=== PATIENT | female | born 1970 | race Caucasian/White ===

== ENCOUNTER 2024-06-22 11:27 | Emergency (ER) | payer BC, SELFPAY ==
[2024-06-22] VITALS (23 sets, daily range): BP systolic 133–208; BP diastolic 75–99; PULSE 93–123; RESP 11–28; TEMP 36.5; O2SAT 94–100
--- NOTE | 2024-06-22 11:57 | ED.GENADUL_ITS ---
Discharge Plan Disposition Patient Disposition: Home Condition: Stable Discharge Details Clinical Impression: Acute alcoholic gastritis, Nausea & vomiting Primary Care Provider: Stephanie,Local ED Provider: Minerva Shukla Home Meds and New Rx's Prescriptions: New ondansetron 4 mg tablet,disintegrating 4 mg PO Q8H PRN (Reason: nausea and vomiting) 4 Days Qty: 10 0RF Rx Instructions: Take 1 tablet by mouth up to 3 times daily 20 minutes before eating or drinking anything for the next 4 days as needed for nausea vomiting Continued desvenlafaxine succinate [Pristiq] 50 mg tablet extended release 24 hr 50 mg PO DAILY topiramate [Qudexy XR] 200 mg capsule,sprinkle,ER 24hr 200 mg PO DAILY atorvastatin [Lipitor] 20 mg tablet 20 mg PO DAILY naltrexone 50 mg tablet 50 mg PO DAILY valacyclovir 1 gram tablet 2,000 mg PO Q12H PRN Patient Comments: as needed for cold sore Discharge Instructions Instructions: Alcohol use - when is drinking a problem?, Gastritis ED, Nausea and Vomiting, Adult ED Additional Instructions: Please take the nausea medication 20 to 30 minutes before eating or drinking anything. Please keep yourself hydrated today. [place] diet. Stay away from anything fried fatty spicy dairy or alcohol. Follow up with primary care provider in 3-5 days. Return to ED sooner if any worsening or concerns. Return to the ER if you have any continued vomiting, tremors, any visual disturbances or concerns. Referrals: [facility] [Outside] - 1 day (Call if desired) Primary Care Provider [Outside] - 3 days HPI General Mode of arrival: ambulatory . Date/Time Provider Initiated Documentation: 06/22/24 11:45 . Limitations to Documentation: no limitations . Information obtained by: patient, RN notes reviewed and old records reviewed . HPI Narrative: 53-year-old female presents to the ER with a chief complaint of nausea vomiting after drinking approximately half a bottle of gin last night. Patient reports that she does have a history of alcohol dependence and is currently undergoing treatment she does have a therapist and psychiatrist. She reports that she had a lapse last night. She states that she is unable to keep any water down and she feels thirsty. No noted tremors noted, she is slightly tachycardic upon ar rival and a rate of 123. Denies any abdominal pain or diarrhea. She does have a past medical history of high cholesterol, Related Data Home Medications ?Medication ?Instructions ?Recorded ?Confirmed atorvastatin 20 mg tablet (Lipitor) 20 mg PO DAILY 06/22/24 06/22/24 desvenlafaxine succinate 50 mg 50 mg PO DAILY 06/22/24 06/22/24 tablet,extended release 24 hr (Pristiq) naltrexone 50 mg tablet 50 mg PO DAILY 06/22/24 06/22/24 ondansetron 4 mg disintegrating 4 mg PO Q8H PRN nausea and 06/22/24 tablet vomiting 4 days #10 tabs topiramate 200 mg capsule 200 mg PO DAILY 06/22/24 06/22/24 sprinkle,extended release 24 hr (Qudexy XR) valacyclovir 1 gram tablet 2,000 mg PO Q12H PRN 06/22/24 06/22/24 Previous Rx's ?Medication ?Instructions ?Recorded ondansetron 4 mg disintegrating 4 mg PO Q8H PRN nausea and 06/22/24 tablet vomiting 4 days #10 tabs Allergies Allergy/AdvReac Type Severity Reaction Status Date / Time No Known Allergies Allergy Unverified 06/22/24 11:44 General Stated Complaint: Nausea/Vomit/Diar KENIA: 2 Review of Systems All systems reviewed & are unremarkable except as noted in HPI and below Gastrointestinal Gastrointestinal: Reports nausea and Reports vomiting Exam Narrative Exam Narrative: Constitutional: Alert and oriented x3. Appears stated age. Normal body habitus. Head: Normocephalic, no trauma. Eyes: Pupils PERRL, Red reflex noted, EOM's intact. Eyelids symmetrical without lesions, discharge, or swelling. ENT: Bilateral TM's WNL, External ear normal to inspection, no mastoid TTP, swelling, or erythema, Nasal turbinates WNL, no nasal discharge. Normal dentition, Posterior pharynx WNL, no exudate. Chest: RRR, Normal S1, S2, distal pulses intact. Resp: Lungs clear to auscultation bilaterally, no wheezes, rales, or rhonchi. Abdomen: Soft, non-distended, Normoactive bowel sounds all 4 quads. Musculoskeletal: Normal gait, Moves all 4 extremities without difficulty. Skin: No suspicious rashes or lesions. Capillary refill less than 2 sec. Neurologic: Cranial nerves II-XII intact. Alert and oriented x 3. Motor: No deficits noted. Sensory: Intact bilaterally all 4 extremities. Hematologic/Lymphatic: No ecchymosis, no lymphadenopathy. Course Vital Signs Vital signs: Vital Signs Temperature 36.5 C 06/22/24 11:38 Pulse 123 H 06/22/24 11:38 Respiratory Rate 18 06/22/24 11:38 Blood Pressure 133/75 06/22/24 11:38 Pulse Oximetry 100 06/22/24 11:38 Temperature 36.5 C 06/22/24 11:38 Pulse 123 H 06/22/24 11:38 Respiratory Rate 18 06/22/24 11:38 Respiratory Effort Normal 06/22/24 11:43 Blood Pressure 133/75 06/22/24 11:38 Pulse Oximetry 100 06/22/24 11:38 Pain Level 0 06/22/24 11:38 Medical Decision Making 53-year-old female presents to the ER with a chief complaint of nausea vomiting after drinking approximately half a bottle of gin last night. Patient reports that she does have a history of alcohol dependence and is currently undergoing treatment she does have a therapist and psychiatrist. She reports that she had a lapse last night. She states that she is unable to keep any water down and she feels thirsty. No noted tremors noted, she is slightly tachycardic upon arrival and a rate of 123. Denies any abdominal pain or diarrhea. She does have a past medical history of high cholesterol, Labs ordered including ethyl alcohol level, Zofran 4 mg IV push. Will push p.o. fluids Offered [facility] patient declined at this time. No evidence of emesis after Zofran administration patient has tolerated p.o. liquids without difficulty. Patient discharged to home with prescription for Zofran. Given cane and recovery phone number and encouraged to follow-up. Heart rate is improved. She has been tolerating p.o. fluids without difficulty. No evidence of withdrawal at this time. Vital signs are stable. This text was generated using [employer] system, please disregard any oddities of phrase or misspellings. Medical Records Medical records reviewed: Yes I reviewed the patient's medical records. Lab Data Lab results reviewed: Yes I reviewed the patient's lab results. Labs: Laboratory Tests Range/Units 06/22/24 06/22/24 11:50 12:10 WBC (4.4-10.8) 10^3/uL 7.97 RBC (3.93-5.22) 10^6/uL 4.46 Hgb (11.2-15.7) g/dL 13.1 Hct (36.0-46.0) % 40.8 MCV (80-95) fL 92 MCH (27.0-33.0) pg 29.4 MCHC (32.0-36.0) % 32.1 RDW (11.7-14.6) % 12.7 Plt Count (130-400) 10^3/uL 226 MPV (8.0-11.0) fL 9.6 Immature Gran % % 0.5 Neutrophils % % 76.2 Lymphocytes % % 18.8 Monocytes % % 2.4 Eosinophils % % 1.5 Basophils % % 0.6 Nucleated RBC % (0.0-0.3) % 0.0 Absolute Neutrophils (1.2-6.7) 10^3/uL 6.07 Absolute Lymphocytes (1.2-3.4) 10^3/uL 1.50 Absolute Monocytes (0.1-0.8) 10^3/uL 0.19 Absolute Eosinophils (0.0-0.7) 10^3/uL 0.12 Absolute Basophils (0.0-0.2) 10^3/uL 0.05 Sodium (136-145) mmol/L 146 H Potassium (3.5-5.1) mmol/L 4.1 Chloride (98-107) mmol/L 109 H Carbon Dioxide (21.0-32.0) mmol/L 30.4 Anion Gap (3-11) mmol/L 6.6 BUN (7-18) mg/dL 14 Creatinine (0.55-1.02) mg/dL 0.7 Est GFR (CKD-EPI 2020) (mL/min/1.73m2) 104.65 Glucose (74-106) mg/dL 99 Calcium (8.5-10.1) mg/dL 8.3 L Magnesium (1.8-2.4) mg/dL 2.1 Total Bilirubin (0.2-1.0) mg/dL 0.20 AST (15-37) U/L 22 ALT (14-59) U/L 37 Alkaline Phosphatase (46-116) U/L 76 Total Protein (6.4-8.2) g/dL 7.3 Albumin (3.4-5.0) g/dL 3.2 L Lipase (16-77) U/L 32 Ethyl Alcohol (<10) mg/dL < 3.0 Quality:SDOH Health Related Social Needs: No Data to Display PFSH All Active Problems (Updated 06/22/24 @ 13:27 by Minerva Shukla NP) Nausea & vomiting (Acute) Acute alcoholic gastritis (Acute) Social History Smoking/Tobacco Use Status: Never Smoking risk assessment performed?: Yes Alcohol Intake: current Alcohol Intake frequency: 3 or more drinks per day Alcohol type: beer and hard liquor Drug use: Never Substance use type: does not use Housing: house Do you feel safe at home: Yes Do you feel safe in your relationship?: Yes
[2024-06-22 12:17] LABS: Abs Immature Grans 0.04 10^3/uL (0.0-0.06); Absolute Basophil Count 0.05 10^3/uL (0.0-0.2); Absolute Eosinophil Count 0.12 10^3/uL (0.0-0.7); Absolute Monocyte Count 0.19 10^3/uL (0.1-0.8); Absolute Neutrophil Count 6.07 10^3/uL (1.2-6.7); Basophils % 0.6 %; Eosinophils % 1.5 %; HCT 40.8 % (36.0-46.0); HGB 13.1 g/dL (11.2-15.7); Immature Grans % 0.5 %; Lymphocytes % 18.8 %; MCH 29.4 pg (27.0-33.0); MCHC 32.1 % (32.0-36.0); MCV 92 fL (80-95); MPV 9.6 fL (8.0-11.0); Monocytes % 2.4 %; Neutrophils % 76.2 %; Platelet Count 226 10^3/uL (130-400); RBC 4.46 10^6/uL (3.93-5.22); RDW 12.7 % (11.7-14.6); RDW-SD 42.8 fL; WBC 7.97 10^3/uL (4.4-10.8)
[2024-06-22] MEDS: Ondansetron 4 MG/2 ML VIAL IVP (12:17)
[2024-06-22 12:32] LABS: ALT 37 U/L (14-59); AST 22 U/L (15-37); Albumin 3.2 g/dL (3.4-5.0); Alkaline Phosphatase 76 U/L (46-116); Anion Gap 6.6 mmol/L (3-11); BUN 14 mg/dL (7-18); CO2 30.4 mmol/L (21.0-32.0); CREATININE 0.7 mg/dL (0.55-1.02); Calcium 8.3 mg/dL (8.5-10.1); Chloride 109 mmol/L (98-107); Estimated GFR 104.65 (mL/min/1.73m2); Glucose 99 mg/dL (74-106); Lipase 32 U/L (16-77); Magnesium 2.1 mg/dL (1.8-2.4); Potassium 4.1 mmol/L (3.5-5.1); Sodium 146 mmol/L (136-145); Total Protein 7.3 g/dL (6.4-8.2)
[2024-06-22 12:37] LABS: ETHANOL BLOOD < 3.0 mg/dL (<10)
[2024-06-22 13:23] LABS: Bilirubin Negative (Negative); Blood Trace-intact (Negative); Clarity Clear (Clear); Glucose Negative (Negative); Ketones Negative (Negative); Leukocyte Esterase Negative (Negative); Nitrite Negative (Negative); Urobilinogen 0.2 mg/dL (Up to 0.2)
[2024-06-22 13:33] LABS: Bacteria Negative HPF (Negative); C & S Indicated? No; Casts Negative LPF (Negative); Crystals Negative HPF (Negative); Epithelial Cells Few HPF (Negative); Mucus Negative (Negative); RBC 0-2 HPF (0-2); WBC Negative HPF (0-5)
[2024-06-22] MEDS: Ondansetron O.D.T. 4 MG TABEF, 3 TABS/BTL PO (13:35)
== END 2024-06-22 13:56 | disposition home or self-care (01) ==
LOC: ER 14:03
PROVIDERS: Emergency Provider Registered Nurse Emergency
DX: K29.20 Alcoholic gastritis without bleeding (principal); F10.20 Alcohol dependence, uncomplicated; R11.2 Nausea with vomiting, unspecified
CPT/HCPCS: 80053; 83690; 96374; 99284; 80320; 81003; 81015; 83735; 85025; 99283; J2405

== ENCOUNTER 2024-07-27 02:58 | Outpatient (CLI) | payer BC, MEDICAID, SELFPAY ==
--- NOTE | 2024-07-27 | DI.MAMMO_ITS ---
Exam(s) MG MAMMO SCREENING 60 MIN DUR EXAM: MG MAMMO SCREENING 60 MIN DUR CLINICAL HISTORY: Medication Management, Z79.899; personal h/o breast CA TECHNIQUE: Bilateral full field digital CC and MLO mammographic images were obtained with 3D tomosyn thesis and utilizing computer aided detection (CAD). COMPARISON: Available for comparison. FINDINGS: Masses/Architectural Distortion: There again seen postsurgical changes of a left lumpectomy. No susp icious masses are seen. No new areas of architectural distortion are present. Microcalcifications: No suspicious pleomorphic-type are seen. Skin Thickening/Nipple Retraction: None. IMPRESSION: 1. No significant interval change with no specific features of malignancy noted. 2. Unless there is more urgent need, screening mammography is recommended, as per [employer] guidelines. 3. Findings were discussed with the patient on the date of the examination. BI-RADS Category 2 - Benign Findings Breast Density - Category B - Scattered areas of fibroglandular density Breast density category C or D implies that the patient has dense breast tissue. Dense breast tissue is very common and is not abnormal but dense breast tissue can make it harder to find cancer on a ma mmogram. Also, dense breast tissue may increase their breast cancer risk. This information about the result of the mammogram report was provided to the patient to raise their awareness. Use this report when you speak with the patient about their risks for breast cancer, which includes their family hist ory. At that time, you may recommend for more screening tests (Ultrasound or MRI) as they might be us eful based on their risk. A negative radiographic report should not delay biopsy if a dominant or clinically suspicious mass is present. Up to ten percent of cancers are not identified on mammography. A negative report may reinforce clinical impression. Adenosis and dense breasts may obscure an underlying neoplasm. False positive reports average 6 to 10%. Patient will receive a letter notifying them of these results.
== END 2024-07-27 03:18 ==
PROVIDERS: PCP Family Medicine; Visit Provider Physician Assistant Medical
DX: Z79.899 Other long term (current) drug therapy (principal); R92.323 Mammographic fibroglandular density, bilateral breasts; D24.9 Benign neoplasm of unspecified breast
CPT/HCPCS: 77063; 77067

== ENCOUNTER 2025-04-20 15:00 | Outpatient (REF) | payer MEDICAID, SELFPAY ==
[2025-04-20 16:49] LABS: ALT 25 U/L (14-59); AST 17 U/L (15-37); Albumin 3.7 g/dL (3.4-5.0); Alkaline Phosphatase 81 U/L (46-116); Anion Gap 8.6 mmol/L (3-11); BUN 12 mg/dL (7-18); Bilirubin, Total 0.3 mg/dL (0.2-1.0); CO2 27.4 mmol/L (21.0-32.0); Calcium 9.6 mg/dL (8.5-10.1); Chloride 106 mmol/L (98-107); Estimated GFR 88.60 (mL/min/1.73m2); Glucose 99 mg/dL (74-106); Potassium 4.3 mmol/L (3.5-5.1); Sodium 142 mmol/L (136-145); Total Protein 7.2 g/dL (6.4-8.2)
[2025-04-20 17:28] LABS: Calculated LDL 255 mg/dL (<100); Cholesterol 351 mg/dL (<200); HDL Cholesterol 81 mg/dL (>or=50); Triglyceride 79 mg/dL (<150)
== END 2025-04-20 15:01 | disposition home or self-care (01) ==
LOC: NCHCN 15:00
PROVIDERS: PCP Family Medicine; Visit Provider Family Medicine
DX: F10.21 Alcohol dependence, in remission (principal); E78.2 Mixed hyperlipidemia
CPT/HCPCS: 80053; 80061